=== PATIENT | female | born 1975 | race African-American/Black ===

== ENCOUNTER → 2020-10-20 | Outpatient (CLI) | payer OTHER ==
[2020-10-20 12:20] LABS: INR 1.6; PROTHROMBIN TIME 19.5 SECONDS (12.7-14.5)
== END ==
LOC: M LAB 11:09
DX: Z79.01 Long term (current) use of anticoagulants (principal)

== ENCOUNTER → 2020-10-26 | Outpatient (CLI) | payer OTHER ==
[2020-10-26 12:51] LABS: INR 2.33; PROTHROMBIN TIME 25.9 SECONDS (12.7-14.5)
== END ==
LOC: M LAB 11:17
DX: Z79.01 Long term (current) use of anticoagulants (principal)